=== PATIENT | female | born 1965 | race Caucasian/White ===

== ENCOUNTER 2024-01-12 15:50 | Inpatient (IN) | payer OTHER ==
[2024-01-12 16:43] VITALS: BMI 43.2
[2024-01-12] MEDS ORDERED: Promethazine 25 MG TAB PO PRN (17:41)
[2024-01-12] MEDS: traMADol HCl 50 MG TAB PO PRN (18:38)
[2024-01-12] MEDS ORDERED: Insulin Regular, Human 100 UNIT/ML 10 ML VIAL SC PRN (18:56)
[2024-01-12] MEDS ORDERED: Glucagon 1 MG/ML KIT IM PRN (18:56)
[2024-01-12] MEDS ORDERED: Dextrose 50% Abboject 50 ML SYRINGE SLOW IVP PRN (18:56)
[2024-01-12] MEDS: Furosemide 20 MG TAB PO SCH (22:14)
[2024-01-13] MEDS: Thyroid 30 MG TAB PO SCH (06:23)
[2024-01-13 08:01] LABS: Anion Gap 17 mmol/L (10-20); BUN (Urea Nitrogen) 17 mg/dL (9.8-20.1); Calc. Creatinine Clearance 139 mL/min (70-130); Calcium 9.2 mg/dL (7.8-10.44); Carbon Dioxide 24 mmol/L (22-29); Chloride 103 mmol/L (98-107); Estimated GFR 84; Glucose 165 mg/dL (70-105); Potassium 4.1 mmol/L (3.5-5.1); Sodium 140 mmol/L (136-145)
[2024-01-13 08:12] LABS: Hematocrit 40.4 % (36.0-47.0); Hemoglobin 12.4 g/dL (12.0-16.0); Mean Corpuscular HGB CONC 30.6 g/dL (32.0-36.0); Mean Corpuscular Hemoglobin 28.7 pg (27.0-31.0); Mean Platelet Volume 5.3 fL (7.4-10.4); Platelet Count 453 10x3/uL (130-400); RBC Distribution Width 12.9 % (11.5-14.5); Red Blood Cell (RBC) Count 4.31 mill/uL (4.20-5.40); White Blood Cell (WBC) Count 7.2 10x3/uL (4.8-10.8)
[2024-01-13] MEDS: Enoxaparin 40 MG (0.4 mL) SYRINGE SC SCH (08:32)
[2024-01-13] MEDS: Gabapentin 300 MG CAP PO SCH (08:33)
[2024-01-13] MEDS: Furosemide 20 MG TAB PO SCH (08:33)
[2024-01-13] MEDS: Docusate 100 MG CAP PO SCH (08:33)
[2024-01-13] MEDS: tiZANidine HCl 4 MG TAB PO SCH (08:33)
[2024-01-13] MEDS: Pioglitazone HCl 15 MG TAB PO SCH (08:33)
[2024-01-13] MEDS ORDERED: Dextrose 5% in Water 1,000 ML IV PRN (09:00)
[2024-01-13] MEDS: HumaLOG 300 UNITS/3 ML VIAL SC PRN (11:58)
[2024-01-13] MEDS: Lantiseptic Ointment 130 GM JAR TOP PRN (15:31)
[2024-01-13] MEDS ORDERED: Lantiseptic Ointment 130 GM JAR TOP PRN (16:30)
[2024-01-13] MEDS: Lantiseptic Ointment 130 GM JAR TOP SCH (21:55)
[2024-01-14] MEDS: Lantiseptic Ointment 130 GM JAR TOP PRN (15:55)
[2024-01-15] MEDS: Acetaminophen 325 MG TAB PO PRN (17:57)
[2024-01-16] MEDS: Polyethylene Glycol 3350 17 GM Packet PO PRN (09:20)
[2024-01-16] MEDS: tiZANidine HCl 4 MG TAB PO PRN (20:09)
[2024-01-16] MEDS: Gabapentin 300 MG CAP PO SCH (20:09)
[2024-01-17] MEDS ORDERED: HYDROcodone/Acetaminophen 5/325 mg Tablet PO PRN (00:09)
[2024-01-17] MEDS: traMADol HCl 50 MG TAB PO PRN (06:20)
[2024-01-17] MEDS: Polyethylene Glycol 3350 17 GM Packet PER TUBE SCH (09:07)
[2024-01-18] MEDS: Ondansetron ODT 4 MG TAB SL PRN (12:26)
[2024-01-20] MEDS: traMADol HCl 50 MG TAB PO SCH (10:40)
[2024-01-23 05:10] LABS: Hematocrit 37.2 % (36.0-47.0); Hemoglobin 11.4 g/dL (12.0-16.0); Platelet Count 362 10x3/uL (130-400)
[2024-01-27] MEDS ORDERED: Mag-Al Plus 1200/1200/120 MG (30 mL) UDCUP PO PRN (06:59)
[2024-01-27] MEDS: Pantoprazole DR 40 MG TAB PO SCH (07:13)
[2024-01-27 07:24] LABS: #Basophils 0.1 thou/uL (0.0-0.2); #Eosinphils 0.2 thou/uL (0.0-0.7); #Lymphocytes 2.5 thou/uL (1.20-3.40); #Monocytes 0.3 thou/uL (0.11-0.59); #Neutrophils 2.2 thou/uL (1.40-6.50); %Basophils 1.5 % (0.0-1.0); %Eosinophils 3.4 % (0.0-10.0); %Lymphocytes 47.7 % (21.0-51.0); %Monocytes 5.6 % (0.0-10.0); %Neutrophils 41.8 % (42.0-75.0); Hematocrit 41.4 % (36.0-47.0); Hemoglobin 12.5 g/dL (12.0-16.0); Mean Corpuscular HGB CONC 30.3 g/dL (32.0-36.0); Mean Corpuscular Hemoglobin 28.8 pg (27.0-31.0); Mean Corpuscular Volume 95.1 fl (78.0-98.0); Mean Platelet Volume 6.6 fL (7.4-10.4); Platelet Count 355 10x3/uL (130-400); RBC Distribution Width 13.4 % (11.5-14.5); Red Blood Cell (RBC) Count 4.36 mill/uL (4.20-5.40); White Blood Cell (WBC) Count 5.3 10x3/uL (4.8-10.8)
[2024-01-27 07:39] LABS: ALT (SGPT) 15 U/L (8-55); AST (SGOT) 14 U/L (5-34); Albumin 3.7 g/dL (3.5-5.0); Alkaline Phosphatase 112 U/L (40-110); Anion Gap 17 mmol/L (10-20); BUN (Urea Nitrogen) 12 mg/dL (9.8-20.1); Bilirubin, Total 0.5 mg/dL (0.2-1.2); Calc. Creatinine Clearance 137 mL/min (70-130); Calcium 9.3 mg/dL (7.8-10.44); Carbon Dioxide 24 mmol/L (22-29); Chloride 104 mmol/L (98-107); Estimated GFR 83; Glucose 115 mg/dL (70-105); Lipase 73 U/L (8-78); Potassium 4.3 mmol/L (3.5-5.1); Protein, Total 6.7 g/dL (6.0-8.3); Sodium 141 mmol/L (136-145)
[2024-01-27] MEDS ORDERED: Dicyclomine 10 MG CAP PO PRN (13:08)
[2024-01-28] MEDS: Pantoprazole DR 40 MG TAB PO SCH (08:02)
[2024-01-31 13:05] VITALS: BMI 43.0
[2024-02-02 07:18] VITALS: BP 126/72; TEMP 97.8
== END 2024-02-02 14:30 | disposition home health service (06) | DRG 561 ==
LOC: MADMS 15:50
PROVIDERS: ADMIT Family Medicine; ATTEND Family Medicine
DX: S82.142D Displaced bicondylar fracture of left tibia, subsequent encounter for closed fracture with routine healing (principal); E11.40 Type 2 diabetes mellitus with diabetic neuropathy, unspecified; I89.0 Lymphedema, not elsewhere classified; E03.9 Hypothyroidism, unspecified; W18.30XD Fall on same level, unspecified, subsequent encounter; K80.20 Calculus of gallbladder without cholecystitis without obstruction; K59.00 Constipation, unspecified; K82.9 Disease of gallbladder, unspecified; K21.9 Gastro-esophageal reflux disease without esophagitis; R53.81 Other malaise; G43.909 Migraine, unspecified, not intractable, without status migrainosus; Z88.8 Allergy status to other drugs, medicaments and biological substances; Z79.899 Other long term (current) drug therapy; Z98.891 History of uterine scar from previous surgery; Z90.710 Acquired absence of both cervix and uterus; Z90.89 Acquired absence of other organs; Z98.51 Tubal ligation status; Z98.890 Other specified postprocedural states
CPT/HCPCS: 36415; 36416; 80048; 80053; 82565; 83690; 85014; 85018; 85025; 85027; 85049; J1650; J1815; Q0162